=== PATIENT | female | born 1950 | race Caucasian/White ===

== ENCOUNTER 2018-09-22 23:54 | Emergency (ER) | payer BC ==
[~2018-09-22] VITALS: Ht 157.5 cm; Wt 95.2 kg
[~2018-09-22 23:54] MED LIST: ASPIRIN325 MG PO; CELECOXIB200 MG PO; GABAPENTIN600 MG PO; HEALTHYLAX17 GM PO; LOSARTAN-HCTZ1 EAC2 PO; MOVE FREE JOIN1 EACH PO; OXYCODONE HCL5 MG PO; TYLENOL EXTRA500 MG PO
--- OUTSIDE RECORDS SUMMARY | 2018-09-22 23:56 | XMS ---
PreManage Notification: NOLVIA HOLLIDAY Security Pharmacy Technician Inpatient Events No recent Security Events currently on file [facility] There are no care providers on record at this time. Heather has no Care Guidelines for this patient. Chiquita VISIT COUNT (12 MO.) 1 [facility] TOTAL 1 NOTE: Visits indicate total known visits. ED/UCC VISIT TRACKING (12 MO.) 09/22/2018 23:55 [facility] TYPE: Emergency COMPLAINT: - RIGHT HIP PAIN/POST OP INPATIENT VISIT TRACKING (12 MO.) 08/20/2018 08:[address] [facility] TYPE: Medical Surgical COMPLAINT: - RT TOTAL HIP REPLACEMENT DIAGNOSES: - Unilateral primary osteoarthritis, right hip [id number]
[2018-09-23] MEDS ORDERED: IBUPROFEN200 MG PO (00:33)
== END 2018-09-23 02:46 | disposition home or self-care (01) ==
LOC: ED 23:54
DX: M25.551 Pain in right hip (principal); I10 Essential (primary) hypertension; Z79.899 Other long term (current) drug therapy
CPT/HCPCS: 73502; 85025; 85651; 99283

== ENCOUNTER 2023-10-09 13:05 | Emergency (ER) | payer OTHER, BC ==
[~2023-10-09] VITALS: Ht 157.5 cm; Wt 109.0 kg
[~2023-10-09 13:05] MED LIST changes: +IBUPROFEN200 MG PO
[2023-10-09] MEDS ORDERED: diazePAM 10 MG/2 ML SYR IV ONE (14:45)
[2023-10-09] MEDS ORDERED: KETOROLAC TROMETHAMINE 15 MG/ML VIAL IV ONE (14:45)
[2023-10-09] MEDS ORDERED: MORPHINE SULFATE 4 MG/ML VIAL IV ONE (14:45)
[2023-10-09 16:02] VITALS: BP 161/92
== END 2023-10-09 16:04 | disposition home or self-care (01) ==
LOC: ED 13:05
DX: S43.015A Anterior dislocation of left humerus, initial encounter (principal); S43.035A Inferior dislocation of left humerus, initial encounter; I10 Essential (primary) hypertension; W18.09XA Striking against other object with subsequent fall, initial encounter; Z79.899 Other long term (current) drug therapy
CPT/HCPCS: 73030; J1885; J2270; J3360